=== PATIENT | male | born 1955 | race Caucasian/White ===

== ENCOUNTER 2021-07-24 11:31 | Inpatient (IN) ==
[2021-07-24] MEDS ORDERED: NS 0.9% 1000 ml BAG 1,000 ML IV ONE (12:37)
[2021-07-24 13:43] LABS: ABS Lymphocytes 0.2 10^3/ul (1.0-4.8); ABS Monocytes 0.2 10^3/ul (0-0.8); ABS Neutrophils 10.8 10^3/ul (1.5-7.7); Eosinophil % 0.3 %; Hematocrit 43 % (42-52); Hemoglobin 14.7 g/dL (14.0-18.0); Lymphocyte % 1.8 %; Mean Corpuscular HGB Conc 34 g/dL (31-36); Mean Corpuscular Hemoglobin 33 pg (27-31); Mean Corpuscular Volume 96 fL (80-94); Mean Platelet Volume 8.4 fL (7.4-10.4); Platelet Count 171 10^3/uL (150-450); Red Blood Count 4.45 10^6 /uL (4.18-5.48); Red Cell Distribution Width 14 % (10-15); White Blood Count 11.3 10^3/uL (3.5-10.8)
[2021-07-24 14:09] LABS: ALT 79 U/L (7-52); Albumin/Globulin Ratio 1.2 (1-3); Alkaline Phosphatase 153 U/L (35-149); Blood Urea Nitrogen 18 mg/dL (6-24); CO2 Carbon Dioxide 24 mmol/L (22-32); Calcium 9.3 mg/dL (8.6-10.3); Chloride 101 mmol/L (101-111); Globulin 3.3 g/dL (2-4); Glucose 97 mg/dL (70-100); Lipase 10 U/L (11.0-82.0); Magnesium 1.4 mg/dL (1.9-2.7); Sodium 133 mmol/L (135-145); Total Protein 7.3 g/dL (6.4-8.9)
[2021-07-24 14:11] LABS: Troponin I 0.18 ng/mL (<0.03)
[2021-07-24 15:00] LABS: Anion Gap 8 mmol/L (2-11)
[2021-07-24] MEDS ORDERED: Cefepime 2 GM in Dextrose 2 GM/50 ML BAG IV ONE (15:26)
[2021-07-24] MEDS ORDERED: Vancomycin 1,500 MG in NS 0.9% 250 ml 250 ML IVPB ONE (15:26)
[2021-07-24 16:11] LABS: Potassium Redraw 3.7 mmol/L (3.5-5.0)
[2021-07-24 16:42] LABS: Creatine Kinase 147 U/L (10-223)
[2021-07-24 17:03] LABS: Hepatitis B Surface Antigen Nonreactive (Nonreactive)
[2021-07-24] MEDS ORDERED: Iohexol 300 (CONTRAST) 10 ML SDV IV ONE (17:06)
[2021-07-24 17:08] LABS: Hepatitis A Ab IgM Negative (Negative)
[2021-07-24 17:09] LABS: Hepatitis B Core IgM Nonreactive (Nonreactive)
[2021-07-24 17:20] LABS: Hepatitis C Antibody Negative (Negative)
[2021-07-24] MEDS ORDERED: LACTATED RINGERS IV ONE (17:46)
[2021-07-24 18:30] LABS: Urine Appearance Clear; Urine Bilirubin Negative (Negative); Urine Blood 1+ (Negative); Urine Color Yellow; Urine Glucose Negative (Negative); Urine Ketones Negative (Negative); Urine Nitrite Negative (Negative); Urine Protein Negative (Negative); Urine Urobilinogen Negative (Negative)
[2021-07-24 18:36] LABS: Urine Bacteria Absent (Absent); Urine Red Blood Cell Trace(0-2/hpf) (Absent); Urine Squamous Epithelial Cell Present (Absent); Urine White Blood Cell Trace(0-5/hpf) (Absent)
[2021-07-24] MEDS ORDERED: Magnesium Sulf 4 GM/100 ML IV 4,000 MG/100 ML BAG IVPB ONE (19:12)
[2021-07-24 20:57] LABS: Troponin I 0.23 ng/mL (<0.03)
[2021-07-24 21:03] LABS: Acetaminophen < 15 mcg/mL
[2021-07-24] MEDS: Potassium Chlor 20 meq TAB.ER PO SCH (21:56)
[2021-07-24] MEDS: Enoxaparin 40 MG/0.4 ML SYR SUBCUT SCH (21:56)
[2021-07-24] MEDS ORDERED: cefTRIAXone 1 gm/50 mL NS BAG 1 GM/50 ML BAG IVPB SCH (23:00)
[2021-07-24] MEDS: Lactated Ringers 1000 ml BAG 1,000 ML IV SCH (23:06)
[2021-07-25 02:28] LABS: Troponin I 0.08 ng/mL (<0.03)
[2021-07-25] MEDS: Lactated Ringers 1000 ml BAG 1,000 ML IV SCH ×2 (03:06→09:00)
[2021-07-25 03:36] LABS: Rapid COVID-19 Molecular Undetected (Undetected)
[2021-07-25 06:25] LABS: ABS Lymphocytes 0.3 10^3/ul (1.0-4.8); ABS Monocytes 0.3 10^3/ul (0-0.8); ABS Neutrophils 7.6 10^3/ul (1.5-7.7); Eosinophil % 0.3 %; Hematocrit 34 % (42-52); Hemoglobin 11.8 g/dL (14.0-18.0); Lymphocyte % 3.5 %; Mean Corpuscular HGB Conc 35 g/dL (31-36); Mean Corpuscular Hemoglobin 34 pg (27-31); Mean Corpuscular Volume 96 fL (80-94); Mean Platelet Volume 8.9 fL (7.4-10.4); Nucleated Red Blood Cells % 0.1; Platelet Count 103 10^3/uL (150-450); Red Blood Count 3.51 10^6 /uL (4.18-5.48); Red Cell Distribution Width 14 % (10-15); White Blood Count 8.3 10^3/uL (3.5-10.8)
[2021-07-25 06:43] LABS: Albumin 2.8 g/dL (3.2-5.2); Albumin/Globulin Ratio 1.2 (1-3); Globulin 2.4 g/dL (2-4); Magnesium 2.3 mg/dL (1.9-2.7); Total Bilirubin 2.5 mg/dL (0.2-1.0); Total Protein 5.2 g/dL (6.4-8.9)
[2021-07-25] MEDS ORDERED: Lactated Ringers 1000 ml BAG 1,000 ML IV ONE (06:45)
[2021-07-25] MEDS ORDERED: cefTRIAXone 1 gm/50 mL NS BAG 1 GM/50 ML BAG IVPB ONE (07:10)
[2021-07-25] MEDS: Potassium Chlor 20 meq TAB.ER PO SCH (08:05)
[2021-07-25] MEDS ORDERED: Lactated Ringers 1000 ml BAG 1,000 ML IV SCH (09:12)
[2021-07-25 11:13] LABS: Hepatitis B Surface Antigen Nonreactive (Nonreactive)
[2021-07-25 11:18] LABS: Hepatitis A Ab IgM Negative (Negative)
[2021-07-25 11:19] LABS: Hepatitis B Core IgM Nonreactive (Nonreactive)
[2021-07-25 11:30] LABS: Hepatitis C Antibody Negative (Negative)
[2021-07-25] MEDS ORDERED: Perflutren Lipid Microsphere 3 ML VIAL ONE (14:38)
[2021-07-25 20:18] LABS: Anaplasma phagocytophilum Negative (Negative); B. miyamotoi PCR, B Negative (Negative); Babesia divergens/MO-1 Negative (Negative); Babesia ducani Negative (Negative); Ehrlichia chaffeensis Negative (Negative); Ehrlichia ewingii/canis Negative (Negative); Ehrlichia muris eauclairensis Negative (Negative)
[2021-07-25] MEDS: Enoxaparin 40 MG/0.4 ML SYR SUBCUT SCH (20:48)
[2021-07-26 06:29] LABS: Hematocrit 33 % (42-52); Hemoglobin 11.4 g/dL (14.0-18.0); Mean Corpuscular HGB Conc 35 g/dL (31-36); Mean Corpuscular Hemoglobin 33 pg (27-31); Mean Corpuscular Volume 94 fL (80-94); Mean Platelet Volume 8.7 fL (7.4-10.4); Platelet Count 98 10^3/uL (150-450); Red Blood Count 3.48 10^6 /uL (4.18-5.48); Red Cell Distribution Width 14 % (10-15); White Blood Count 8.7 10^3/uL (3.5-10.8)
[2021-07-26 06:44] LABS: Albumin 2.8 g/dL (3.2-5.2); Albumin/Globulin Ratio 1.1 (1-3); Globulin 2.5 g/dL (2-4); Magnesium 1.6 mg/dL (1.9-2.7); Potassium 3.4 mmol/L (3.5-5.0); Total Bilirubin 2.4 mg/dL (0.2-1.0); Total Protein 5.3 g/dL (6.4-8.9)
[2021-07-26] MEDS ORDERED: Piperacillin/Tazobac ADVAN 3.375 GM in NS 0.9% 100 ml BAG 100 ML IV ONE (07:41)
[2021-07-26] MEDS ORDERED: Lactated Ringers 1000 ml BAG 500 ML IV ONE (08:00)
[2021-07-26] MEDS ORDERED: Magnesium Sulf 4 GM/100 ML IV 4,000 MG/100 ML BAG IVPB ONE (08:00)
[2021-07-26] MEDS ORDERED: Zosyn per Pharmacy NOTE FOLLOW UP SCH ×2 (08:00)
[2021-07-26] MEDS ORDERED: PIPERACILLIN IV SCH ×2 (08:30)
[2021-07-26] MEDS ORDERED: NS 0.9% IV SCH ×2 (08:30)
[2021-07-26] MEDS ORDERED: TAZOBAC ADVAN IV SCH ×2 (08:30)
[2021-07-26 08:45] LABS: INR 1.05 (0.86-1.15)
[2021-07-26] MEDS: Potassium Chlor 20 meq TAB.ER PO SCH ×2 (08:53→17:42)
[2021-07-26] MEDS ORDERED: cefTRIAXone 2 GM ADDV.VIAL 2 GM in NS 0.9% 100 ml BAG 100 ML IV SCH (09:00)
[2021-07-26] MEDS ORDERED: Piperacillin/Tazobac ADVAN 3.375 GM in NS 0.9% 100 ml BAG 100 ML IV SCH (13:30)
[2021-07-26] MEDS ORDERED: Midazolam 5 mg/5 ml VIAL 1 mg/ml 5 ml VIAL (5 mg) ONE (14:00)
[2021-07-26] MEDS ORDERED: Naloxone 0.4 mg VIAL 0.4 mg/ml 1 ml VIAL ONE (14:00)
[2021-07-26] MEDS ORDERED: Flumazenil 0.5 mg/5 ml 0.1 MG/ML 5 ml VIAL ONE (14:00)
[2021-07-26] MEDS ORDERED: fentaNYL 100 mcg/2 ml 50 MCG/ML VIAL ONE (14:00)
[2021-07-26] MEDS: Piperacillin/Tazobac ADVAN 3.375 GM in NS 0.9% 100 ml BAG 100 ML IV SCH ×2 (15:59→22:57)
[2021-07-26] MEDS: Enoxaparin 40 MG/0.4 ML SYR SUBCUT SCH (20:26)
[2021-07-27] MEDS: Piperacillin/Tazobac ADVAN 3.375 GM in NS 0.9% 100 ml BAG 100 ML IV SCH ×3 (07:50→23:49)
[2021-07-27 09:33] LABS: Hematocrit 35 % (42-52); Mean Corpuscular HGB Conc 34 g/dL (31-36); Mean Corpuscular Hemoglobin 33 pg (27-31); Mean Corpuscular Volume 96 fL (80-94); Mean Platelet Volume 9.3 fL (7.4-10.4); Platelet Count 112 10^3/uL (150-450); Red Blood Count 3.65 10^6 /uL (4.18-5.48); Red Cell Distribution Width 15 % (10-15); White Blood Count 9.2 10^3/uL (3.5-10.8)
[2021-07-27 09:35] LABS: Albumin 3.1 g/dL (3.2-5.2); Albumin/Globulin Ratio 1.1 (1-3); Calcium 8.2 mg/dL (8.6-10.3); Globulin 2.8 g/dL (2-4); Magnesium 1.6 mg/dL (1.9-2.7); Total Bilirubin 3.3 mg/dL (0.2-1.0); Total Protein 5.9 g/dL (6.4-8.9)
[2021-07-27 10:46] LABS: C Reactive Protein 110.39 mg/L (<8.01)
[2021-07-27 11:28] LABS: ABS Eosinophils 0.1 10^3/ul (0-0.6); ABS Lymphocytes 0.9 10^3/ul (1.0-4.8); ABS Neutrophils 7.3 10^3/ul (1.5-7.7); Eosinophil % 0.7 %; RBC Morphology Normal (Normal)
[2021-07-27] MEDS: Enoxaparin 40 MG/0.4 ML SYR SUBCUT SCH (19:45)
[2021-07-28] MEDS: Piperacillin/Tazobac ADVAN 3.375 GM in NS 0.9% 100 ml BAG 100 ML IV SCH ×3 (09:01→20:43)
[2021-07-28 10:50] LABS: Hematocrit 37 % (42-52); Hemoglobin 12.6 g/dL (14.0-18.0); Mean Corpuscular HGB Conc 34 g/dL (31-36); Mean Corpuscular Hemoglobin 32 pg (27-31); Mean Corpuscular Volume 95 fL (80-94); Mean Platelet Volume 8.5 fL (7.4-10.4); Platelet Count 149 10^3/uL (150-450); Red Blood Count 3.91 10^6 /uL (4.18-5.48); Red Cell Distribution Width 15 % (10-15); White Blood Count 7.1 10^3/uL (3.5-10.8)
[2021-07-28 10:56] LABS: INR 1.04 (0.86-1.15)
[2021-07-28 11:09] LABS: Albumin 3.1 g/dL (3.2-5.2); Calcium 8.5 mg/dL (8.6-10.3); Globulin 3.1 g/dL (2-4); Magnesium 1.7 mg/dL (1.9-2.7); Phosphorus 2.6 mg/dL (2.5-5.0); Potassium 3.7 mmol/L (3.5-5.0); Total Bilirubin 2.9 mg/dL (0.2-1.0); Total Protein 6.2 g/dL (6.4-8.9)
[2021-07-28] MEDS ORDERED: Magnesium Sulf 4 GM/100 ML IV 4,000 MG/100 ML BAG IVPB ONE (16:21)
[2021-07-28] MEDS: Enoxaparin 40 MG/0.4 ML SYR SUBCUT SCH (20:45)
[2021-07-29] MEDS: Piperacillin/Tazobac ADVAN 3.375 GM in NS 0.9% 100 ml BAG 100 ML IV SCH (05:02)
[2021-07-29 07:43] LABS: Hematocrit 35 % (42-52); Hemoglobin 12.1 g/dL (14.0-18.0); Mean Corpuscular HGB Conc 35 g/dL (31-36); Mean Corpuscular Hemoglobin 33 pg (27-31); Mean Corpuscular Volume 95 fL (80-94); Mean Platelet Volume 8.6 fL (7.4-10.4); Platelet Count 171 10^3/uL (150-450); Red Blood Count 3.64 10^6 /uL (4.18-5.48); Red Cell Distribution Width 15 % (10-15); White Blood Count 7.3 10^3/uL (3.5-10.8)
[2021-07-29 08:02] LABS: Albumin 2.9 g/dL (3.2-5.2); Calcium 7.8 mg/dL (8.6-10.3); Magnesium 2.2 mg/dL (1.9-2.7); Potassium 3.7 mmol/L (3.5-5.0); Total Bilirubin 1.9 mg/dL (0.2-1.0); Total Protein 5.9 g/dL (6.4-8.9)
[2021-07-29 13:03] VITALS: BP 125/73
== END 2021-07-29 13:50 | disposition home or self-care (01) | DRG 872 ==
LOC: ED 11:31 → SUATTDRO 16:43 → MED 16:43
PROVIDERS: ADMIT Internal Medicine; ATTEND Hospitalist

== ENCOUNTER 2024-04-05 08:18 | Observation (INO) ==
[2024-04-05] MEDS ORDERED: Naloxone 0.4 mg VIAL 0.4 mg/ml 1 ml VIAL IV PRN (08:32)
[2024-04-05] MEDS ORDERED: Metoclopramide 5 MG/ML VIAL (10 mg) IV PRN (08:32)
[2024-04-05] MEDS ORDERED: Ondansetron 4 mg VIAL 2 MG/ML 2 ml VIAL IV PRN ×2 (08:32→14:16)
[2024-04-05] MEDS ORDERED: fentaNYL 100 mcg/2 ml 50 MCG/ML VIAL IV PRN (08:32)
[2024-04-05] MEDS ORDERED: NS 0.45% 1000 ml BAG 1,000 ML IV SCH (09:00)
[2024-04-05] MEDS ORDERED: ceFAZolin 2 GM PREMIX 2 GM/50 ML BAG ONE (09:02)
[2024-04-05] MEDS ORDERED: Tranexamic Acid 1 GM/100ML BAG 2,000 MG/200 ML BAG IV ONE (09:02)
[2024-04-05 09:41] LABS: Rapid COVID-19 Molecular Undetected (Undetected)
[2024-04-05] MEDS ORDERED: Propofol 10 MG/ML 20 ML BTL ONE ×2 (09:52→13:48)
[2024-04-05] MEDS ORDERED: Lidocaine 2% PF 5 ML VIAL ONE (09:52)
[2024-04-05] MEDS ORDERED: Midazolam 2 mg/2 ml VIAL 1 mg/ml 2 ml VIAL (2 mg) ONE (09:53)
[2024-04-05] MEDS ORDERED: fentaNYL 250 mcg/5 ml 50 MCG/ML 5 ml VIAL (250 MCG) ONE (09:53)
[2024-04-05] MEDS: Buffered Lidocaine 1% SYRIN 1 ml INTRADERM ONE (10:15)
[2024-04-05] MEDS: Lactated Ringers 1000 ml BAG 1,000 ML IV SCH ×2 (10:16→16:47)
[2024-04-05] MEDS ORDERED: ROPIVACAINE 5 MG/ML 30 ML BTL (0.5%) ONE (10:55)
[2024-04-05] MEDS ORDERED: Rocuronium 50 mg VIAL 10 mg/ml 5 ml VIAL (50 mg) ONE ×2 (11:37→12:22)
[2024-04-05] MEDS ORDERED: Dexamethasone IV 4 MG/ML VIAL 1 ml VIAL ONE (12:07)
[2024-04-05] MEDS ORDERED: Ondansetron 4 mg VIAL 2 MG/ML 2 ml VIAL ONE (12:07)
[2024-04-05] MEDS ORDERED: HYDROmorphone 0.5 MG/0.5 ML SYRINGE ONE (12:17)
[2024-04-05] MEDS ORDERED: KETAMINE HCL 10 MG/ML 20 ml VIAL (200 MG) ONE (12:17)
[2024-04-05] MEDS ORDERED: Calcium Carb (TUMS) 500 mg CHEW TAB PO PRN (14:16)
[2024-04-05] MEDS ORDERED: Lactulose 30 ml UDC PO PRN (14:16)
[2024-04-05] MEDS ORDERED: Magnesium Hydroxide LIQ 30 ML UDC PO PRN (14:16)
[2024-04-05] MEDS ORDERED: Morphine 2 MG/ML SYRINGE IV PRN (14:16)
[2024-04-05] MEDS ORDERED: Ondansetron ODT 4 mg TAB 4 MG TAB PO PRN (14:16)
[2024-04-05] MEDS: Acetaminophen IV 1 GM/100ML 1,000 MG/100 ML BAG IV ONE (16:41)
[2024-04-05] MEDS: Scopolamine 1 mg/72hr PATCH TRANSDERM ONE (16:48)
[2024-04-05] MEDS ORDERED: ceFAZolin 2 GM in NS PREMIX 2 GM/100 ML BAG IVPB SCH (20:00)
[2024-04-05] MEDS: ceFAZolin 2 GM PREMIX 2 GM/50 ML BAG IV SCH (21:40)
[2024-04-05] MEDS: Magnesium Hydroxide LIQ 30 ML UDC PO SCH (21:41)
[2024-04-06 06:17] LABS: Hematocrit 36.4 % (38-53); Hemoglobin 12.6 g/dL (13.2-16.3); Mean Platelet Volume 8.1 fL (7.5-11.2); Platelet Count 208 10^3/uL (150-450)
[2024-04-06 06:44] LABS: Calcium 8.4 mg/dL (8.6-10.3); Creatinine, Serum 1.04 mg/dL (0.67-1.17); Potassium 4.3 mmol/L (3.5-5.0); eGFR CKD-EPI 77.7 (>60)
[2024-04-06] MEDS: Aspirin EC 325 mg TAB.EC PO SCH (09:29)
[2024-04-06] MEDS: Vitamin THERAPEUTIC TAB PO SCH (09:30)
[2024-04-06 14:06] VITALS: BP 131/62
== END 2024-04-06 15:15 | disposition home or self-care (01) ==
LOC: INTOOBSV 08:18 → AA 08:18 → SSU 14:16
PROVIDERS: ADMIT Orthopaedic Surgery Adult Reconstructive Orthopaedic Surgery; ATTEND Orthopaedic Surgery Adult Reconstructive Orthopaedic Surgery